=== PATIENT | male | born 1990 | race Caucasian/White ===

== ENCOUNTER 2022-12-06 07:50 | Day surgery (SDC) | payer MEDICARE, MEDICAID ==
[~2022-12-06] VITALS: Ht 149.9 cm; Wt 65.4 kg
[~2022-12-06 07:50] MED LIST: PROTONIX 40MG T40 MG PO
[2022-12-06 09:35] VITALS: BP 109/75; PULSE 91; TEMP 98.3
--- NOTE | 2022-12-06 09:35 | NUR ---
0935 PATIENT RETURNS TO ROOM 9 VIA CART. PATIENT IS LEFT ON CART TO RECOVER IN ROOM. PATIENT IS NON VERBAL, MOTHER IS IN ROOM. PATIENT IS DROWSY, BUT ALERTS TO VERBAL STIMULI. APPEARS TO BE IN NO APPARENT DISTRESS. RESPIRATIONS EVEN AND UNLABORED. VITAL SIGNS OBTAINED. MOTHER ASKED FOR PUDDING AND JUICE. PATIENT HAD NO DIFFICULTIES SWALLOWING. 0935 DOCTOR IN TO SPEAK WITH PATIENT MOTHER. 0955 DISCHARGE INSTRUCTIONS REVIEWED WITH MOTHER. MOTHER VERBALIZED UNDERSTANDING. 1000 DISCONTINUED IV FROM RIGHT AC WITH NO DIFFICULTIES. 1004 PATIENT DISCHARGES FROM UNIT VIA WHEELCHAIR IN STABLE CONDITION
[2022-12-06 09:50] VITALS: BP 108/70; PULSE 86
[2022-12-06 10:00] VITALS: BP 113/80; PULSE 92
[2022-12-06 13:06] VITALS: BP 12/72; PULSE 80; TEMP 98.3
== END 2022-12-06 09:35 | disposition home or self-care (01) ==
LOC: SDCO 07:50
DX: K22.2 Esophageal obstruction (principal); K21.00 Gastro-esophageal reflux disease with esophagitis, without bleeding
CPT/HCPCS: C1726; J2704

== ENCOUNTER 2024-07-09 08:38 | Day surgery (SDC) | payer MEDICARE, MEDICAID ==
[~2024-07-09] VITALS: Ht 149.9 cm; Wt 63.5 kg
[~2024-07-09 08:38] MED LIST changes: +LR 1,000 ML IV SCH; +Ondansetron 4 MG/2 ML VIAL IV PRN
[2024-07-09 09:40] VITALS: BP 115/74; PULSE 94; TEMP 98.2
[2024-07-09] MEDS ORDERED: Lidocaine PF 2% (20 MG/ML) 5 ML VIAL ONE (09:52)
[2024-07-09 09:56] VITALS: BP 115/79; PULSE 94; TEMP 98.2
[2024-07-09] MEDS ORDERED: MULTI VITAMINS1 TAB PO (10:19)
[2024-07-09] MEDS ORDERED: ZYLOPRIM 300MG300 MG PO (10:20)
[2024-07-09 11:35] VITALS: BP 100/67; PULSE 76; TEMP 98.2
[2024-07-09 11:50] VITALS: BP 89/72; PULSE 76
[2024-07-09 12:05] VITALS: BP 107/74; PULSE 68
--- NOTE | 2024-07-09 12:12 | NUR ---
Pt returned from procedure at 1135. Care was assisted by AZUL Mari. Discharge instructions reviewed by AZUL Young at 1145. IV dc'd, pt dressed. Dr. Simeon in room to talk with patient and family at 1205. Patient discharges to family vehicle via w/c at 1210, no complaints at that time.
== END 2024-07-09 12:10 | disposition home or self-care (01) ==
LOC: SDCO 08:38
DX: K22.2 Esophageal obstruction (principal); K21.00 Gastro-esophageal reflux disease with esophagitis, without bleeding; Q90.9 Down syndrome, unspecified
CPT/HCPCS: C1726; J2704